=== PATIENT | female | born 1950 | race Caucasian/White ===

== ENCOUNTER → 2022-04-26 12:55 | Outpatient (BNVA) | payer MEDICARE, OTHER, SELFPAY | PROVIDERS: Visit Provider Orthopaedic Surgery | DX: M70.72 Other bursitis of hip, left hip (principal) | CPT/HCPCS: 20610; 99202; J1100 ==

== ENCOUNTER 2024-07-30 14:27 | Outpatient (AMB) | payer MEDICARE, OTHER, SELFPAY ==
--- NOTE | 2024-07-30 14:31 | A.OFFVIS_ITS ---
Intake Visit Reasons: Left Hip Bursitis Injection Intake Note: Stephy is a 74 year old female who presents today for an injection for her left hip bursitis. Last injection was done on 04/26/22. HPI HPI Left Hip Bursitis Injection: Details: Stephy is a 74 year old female who presents today for an injection for her left hip bursitis. Last injection was done on 04/26/22. She has ongoing spinal stenosis with radicular symptoms but she also has focal left lateral hip pain. This bothers her when she is trying to sleep and rest and as well as when she is playing tennis. The injection in the past was helpful and she would like to try to repeat that. 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 She does have sharp tenderness to palpation over the greater trochanteric bursa. Office Procedures Joint Injection/Aspiration Joint Injection/Aspiration Details: Injected 1 mL of Decadron and 3 mL 1% lidocaine and 3 mL of 0.25% Marcaine. Site was prepped using aseptic technique. Patient tolerated the procedure well. Primary Site: other (Left greater trochanteric bursa) Approach Used: posterolateral Coding - Large joint Procedure code (CPT) selection complete Assessment & Plan Assessment & Plan (1) Bursitis of left hip: Code(s): M70.72 - Other bursitis of hip, left hip Category: Medical Plan: Bursitis versus abductor tendinitis of the left hip. Injected the bursal area. This seems to be helpful to her. Hopefully this helps as well. She will let me know if I can be of further assistance but no further orthopedic intervention warranted. Coding Level of Care Code Est Pt Level 3 (16632) Diagnoses Bursitis of left hip M70.72 CPT Codes Coding - Large joint: 56092 - Large joint ([id number])
== END 2024-07-30 16:11 | disposition home or self-care (01) ==
PROVIDERS: Visit Provider Orthopaedic Surgery
DX: M70.72 Other bursitis of hip, left hip (principal)
CPT/HCPCS: 20610; 99213

== ENCOUNTER → 2024-07-30 14:27 | Outpatient (BNVA) | payer MEDICARE, OTHER, SELFPAY | PROVIDERS: Visit Provider Orthopaedic Surgery | DX: M70.72 Other bursitis of hip, left hip (principal) | CPT/HCPCS: 20610; 99212; J0665; J1100; J2003 ==

== ENCOUNTER 2025-06-14 11:29 | Outpatient (AMB) | payer MEDICARE, OTHER, SELFPAY ==
--- NOTE | 2025-06-14 11:31 | A.OFFVIS_ITS ---
Intake Visit Reasons: Hip GT Bursa Injection Intake Note: Stephy is a 75 year old female who presents today for a repeat Left Hip GT Bursa Injection. Last injected 07/30/24. HPI HPI Hip GT Bursa Injection: Details: Stephy is a 75 year old female who presents today for a repeat Left Hip GT Bursa Injection. Last injected 07/30/24. This injection is helpful for her. 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 She denies injury. 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 Minimal tenderness into the abductor tendon. Office Procedures Joint Inj/Aspir; Non-Pain Clin Joint Injection/Drain Details: Injected 1 mL of Decadron and 3 mL 1% lidocaine and 3 mL of 0.25% Marcaine. Site was prepped using aseptic technique. Patient tolerated the procedure well. Shoulders, Hips, Knees, Hip Injection Large Joint : Left Hip (Greater trochanteric bursa) Coding Procedure code (CPT) selection complete Assessment & Plan Assessment & Plan (1) Bursitis of left hip: Code(s): M70.72 - Other bursitis of hip, left hip Category: Medical Plan: Bursitis left hip. 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 I injected her left greater trochanteric bursa Coding Level of Care Code Est Pt Level 3 (41981) Diagnoses Bursitis of left hip M70.72 CPT Codes Shoulders, Hips, Knees, - Hip Injection Large Joint 71399: Left Hip ([id number])
--- OUTSIDE RECORDS SUMMARY | 2025-06-14 12:53 | XMS_ITS ---
Author Name [facility] Organization Unknown Care Team Organization Name Specialty Phone Email Start Date End Augustine te [facility] LATISHA YT Primary Care 08/05/2019 08/05/2019
--- OUTSIDE RECORDS SUMMARY | 2025-06-14 12:53 | XMS_ITS | Encounter Summary ---
Author Organization [facility] Address [facility] Mobile [facility] [address] [place] [address] Phone Care Team Providers Care Latex Ribbon Machine Operator Name Role Phone Mili Smyth MD Primary Care Provider Luaren Tay MD Primary Care Provider [phone] Encounter Details Date Type Department Care Team (Late st Contact Info) Description 05/16/2022 Procedure Pass [address] [place] [address] Social History Tobacco Use Types Packs/Day Years Used Date Smoking Tobacco: Never Smokeless Tobacco: Never Alcohol Use Standard Drinks/Week Comments Yes 3 (1 standard drink = 0.6 oz pur e alcohol) Comments No Sex and Gender Information Value Date Recorded Sex Assigned at Female 04/24/2020 2:46 PM EDT Legal Sex Female 6:56 PM EST Gender Identity Female 04/24/2020 2:46 PM EDT Sexual Orientation Lesbian or [place] 09/03/2023 8: 28 AM EST documented as of this encounter Plan of Treatment Upcoming Encounters Date Type Department Care Team (Late st Contact Info) Description 04/27/2025 Procedure Pass [address] [place] [address] 12/01/2025 2:00 PM EST Appointment [address] [place] [address] Lauren Tay MD [address] [place] [address] [place] [phone] [email or web address] documented as of this encounter Visit Diagnoses Not on filedocumented in this encounter Care Teams Latex Ribbon Machine Operator Relationship Specialty Start Date End Date Mili Smyth MD [address] [place] [address] [place] [address] [email or web address] PCP - General Internal Medicine 06/02/21 09/02/23 Lauren Tay MD [address] [place] [address] [place] [phone] PCP - General Family Medicine 09/03/23 documented as of this encounter Additional Source Comments The information contained in this document represents components of the legal health record. It is not the complete legal health record.[facility]
--- OUTSIDE RECORDS SUMMARY | 2025-06-14 12:53 | XMS_ITS | Clinical Summary ---
Author Organization [facility] Address [address] [place] [address] Care Team Providers Care Wrapper Stitcher Name Role Phone Irene Vizcaino Primary Care Provider [phone] Allergies No known active allergies Medications atorvastatin (LIPITOR) 10 mg tablet Take 10 mg by mouth daily. 11/13/2020 Active Immunizations Immunization Administration Dates Next Due Hepatitis A Vaccine, Adult Dosage 01/30/2021 Typhoid Vi Capsular Polysaccharide Vaccine 01/30 Yellow Fever Vaccine Alternative Formulation 02/2021 Social History Tobacco Use Types Packs/Day Years Used Date Smoking Tobacco: Never Smokeless Tobacco: Never Comments Unknown Sex and Gender Information Value Date Recorded Sex Assigned at Not on file Legal Sex Female 12:05 PM EST Gender Identity Not on file Sexual Orientation Not on file Last Filed Vital Signs Vital Sign Reading Time Taken Comments Blood Pressure 118/60 01/30/2021 9:56 AM EDT Pulse 60 01/30/2021 9:56 AM EDT Temperature 36.4 C (97.6 F) 01/30/2021 9:56 AM EDT Respiratory Rate 16 01/30/2021 9:56 AM EDT Oxygen Saturation 99% 01/30/2021 9:56 AM EDT Inhaled Oxygen Concentration - - Weight 56.2 kg (124 lb) 01/30/2021 9:56 AM EDT Height - - Body Mass Index - - Plan of Treatment Health Maintenance Due Date Last Done Comments Cologuard 1949 Colon Cancer Screening 1950 Colonoscopy 1950 FOBT / Fit Test 1949 Sigmoidoscopy 1949 Osteoporosis Screening 1999 Pneumococcal Vaccine: 50+ Years (2 of 2 - PCV20 or PCV21) 08/22/2019 08/22/2018, 08/10/2016 RSV Vaccine (60+ years old and patients) (1 - 1-dose 75+ series) 2024 COVID-19 Vaccine ( - season) 2024 01/28/2022, 07/25/2021, 01/11/2021, Additional history exists Alcohol/Substance Use Screening 10/28/2024 Health Care Proxy Review 10/28/2024 Influenza Vaccine (#1) 2025 , 07/30/2020, 09/21/2019, Additional history exists DTaP,Tdap,and Td Vaccines (2 - Td or Tdap) 12/29/2029 12/30/2019, 12/30/2019 Zoster Vaccines Completed 03/24/2021, 09/23/2020 Hepatitis B Vaccines Aged Out No long er eligible based on patient's age to complete this topic Insurance [facility] MEDICARE Care Teams Wrapper Stitcher Relationship Specialty Start Date End Date Irene Vizcaino [address] [place] [id number] [facility] - General 01/30/21
--- OUTSIDE RECORDS SUMMARY | 2025-06-14 12:53 | XMS_ITS | Patient Health Record ---
Author Organization [facility] Dario Nunez Address [address] [place] [address] Care Team Providers Care Crisis Intervention Specialist Name Role Phone Ana Jaramillo MD Primary Care Provider Maricruz salmaClaude Mccann Unavailable [phone] Allergies No Known Allergies Reason For Referral No Information Immunizations Vaccine Route Administration Date Status Comme nts COVID-19 Pfizer BioNTech Vaccine Unknown 01/11/2021 Adm inistered #2 12/21/20 Social History Tobacco Use: Social History Observation Description Date Details (start date - stop date) Never Smoker NA - NA Tobacco Use/Smoking Question Answer Notes Are you a: nonsmoker Alcohol Screen Question Answer Notes Did you have a drink contain ing alcohol in the past year? Yes How often did you have a dri nk containing alcohol in the past year? 2 to 4 times a month (2 points) Points 2 Interpretation Negative Tobacco use other than smoking: Question Answer Notes Are you an other tobacco user? No Plan Of Treatment No Information Insurance Providers Payer Name Payer Address Payer Phone Subscriber Number Group Number Insured Name Patient Relationship to Insured Coverage Start Date Coverage End Date Medicare National Govt S[employer] [address] [facility] [address] [id number] Stephy Jordan Self - patient is the insured [employer] [address] [place], [place] [id number] Stephy Jordan Self - patient is the insured Medical (General) History Medical History History ICD Code Back pain Measles Mumps Chicken pox Surgical History Surgery Date(Month/Year) Chiari I Malformation 2004
== END 2025-06-14 13:36 | disposition home or self-care (01) ==
LOC: HO.HOS 11:30
PROVIDERS: Visit Provider Orthopaedic Surgery
DX: M70.72 Other bursitis of hip, left hip (principal)
CPT/HCPCS: 20610; 99213

== ENCOUNTER → 2025-06-14 11:29 | Outpatient (BNVA) | payer MEDICARE, OTHER, SELFPAY | PROVIDERS: Visit Provider Orthopaedic Surgery | DX: M70.72 Other bursitis of hip, left hip (principal) | CPT/HCPCS: 20610; 99212; J0665; J1100; J2003 ==